=== PATIENT | female | born 1955 | race Native Hawaiian/Other Pacific Islander ===

== ENCOUNTER 2017-11-02 10:43 | Outpatient (CLI) | payer OTHER | END 2017-11-02 22:26 | disposition home or self-care (01) | LOC: RAD 10:43 | DX: M25.561 Pain in right knee (principal); R05 Cough; M25.562 Pain in left knee ==

== ENCOUNTER 2018-03-15 13:58 | Outpatient (CLI) | payer OTHER | END 2018-03-15 19:51 | disposition home or self-care (01) | LOC: MAMMO 13:58 → RAD 14:30 → MAMMO 19:51 | DX: Z12.31 Encounter for screening mammogram for malignant neoplasm of breast (principal) ==

== ENCOUNTER 2018-09-20 12:49 | Outpatient (CLI) | payer OTHER | END 2018-09-20 20:35 | disposition home or self-care (01) | LOC: US 12:49 | DX: R09.89 Other specified symptoms and signs involving the circulatory and respiratory systems (principal) ==

== ENCOUNTER 2018-09-29 12:48 | Outpatient (CLI) | payer OTHER | END 2018-09-29 20:06 | disposition home or self-care (01) | LOC: US 12:48 | DX: R79.89 Other specified abnormal findings of blood chemistry (principal) ==

== ENCOUNTER 2018-10-06 07:57 | Outpatient (CLI) | payer OTHER | END 2018-10-06 20:37 | disposition home or self-care (01) | LOC: CT 07:57 | DX: I25.10 Atherosclerotic heart disease of native coronary artery without angina pectoris (principal) | CPT/HCPCS: 36415; 82565; 84520; Q9963 ==

== ENCOUNTER 2018-10-21 07:49 | Outpatient (CLI) | payer OTHER | END 2018-10-21 19:50 | disposition home or self-care (01) | LOC: CT 07:49 | DX: I73.89 Other specified peripheral vascular diseases (principal) ==